=== PATIENT | female | born 1945 | race Caucasian/White ===

== ENCOUNTER 2017-07-11 17:29 | Emergency (ER) | payer MEDICARE ==
[~2017-07-11] VITALS: Ht 170.2 cm; Wt 91.7 kg
[2017-07-11] MEDS ORDERED: ACETAMINOPHEN 500 MG TABLET PO ONE (18:00)
[2017-07-11] MEDS ORDERED: SODIUM CHLORIDE 0.9% 1,000ML IVBOLUS ONE (18:00)
[2017-07-11] MEDS ORDERED: SODIUM CHLORIDE FLUSH 10ML SYR IVF ONE (18:00)
[2017-07-11] MEDS ORDERED: ACETAMINOPHEN 500 MG TABLET ONE (18:05)
[2017-07-11] MEDS ORDERED: ALBUTEROL/IPRATROPIUM 2.5MG/0.5MG, 3 ML ONE (18:07)
[2017-07-11] MEDS ORDERED: BUDE10.2 INH (18:21)
[2017-07-11] MEDS ORDERED: ALBU1.25 NEB (18:21)
[2017-07-11] MEDS ORDERED: ALBUTEROL/IPRATROPIUM 2.5MG/0.5MG, 3 ML NPPB ONE (18:30)
[2017-07-11 18:49] LABS: ALBUMIN 3.4 g/dL (3.4-5.0); ANION GAP 8 mmol/L (5-15); CALCIUM 8.6 mg/dL (8.5-10.1); CHLORIDE 107 mmol/L (98-107); CREATININE 0.75 mg/dL (0.55-1.02)
[2017-07-11 18:53] LABS: BASOPHILS # (AUTO) 0.04 x10^3/uL (0-0.1); BASOPHILS % (AUTO) 0 % (0-1); EOSINOPHILS # (AUTO) 0.05 x10^3/uL (0-0.4); EOSINOPHILS % (AUTO) 1 % (1-7); LYMPHOCYTES # (AUTO) 0.84 x10^3/uL (1-3.4); LYMPHOCYTES % (AUTO) 9 % (22-44); MD NO; MEAN CORPUSCULAR HEMOGLOBIN 27.9 pg (27.0-34.8); MEAN CORPUSCULAR HGB CONC 33.2 g/dL (32.4-35.8); MEAN CORPUSCULAR VOLUME 83.9 fL (80-100); MEAN PLATELET VOLUME 8.9 fL (7.4-10.4); MONOCYTES # (AUTO) 0.63 x10^3/uL (0.2-0.8); MONOCYTES % (AUTO) 6 % (2-9); NEUTROPHILS # (AUTO) 8.27 x10^3/uL (1.8-6.8); NEUTROPHILS % (AUTO) 84 % (42-75); PLATELET COUNT 187 x10^3/uL (130-400); RED BLOOD COUNT 5.14 x10^6/uL (3.82-5.3); RED CELL DISTRIBUTION WIDTH 16.7 % (9.6-15.2)
[2017-07-11 19:16] LABS: TROPONIN I < 0.015 ng/mL (0.000-0.045)
[2017-07-11 20:01] LABS: MICROSCOPIC INDICATED
[2017-07-11 20:17] LABS: CULTURE INDICATED? NO
[2017-07-11 20:32] VITALS: BP 109/72
[2017-07-11] MEDS ORDERED: methylPREDNISolone SOD SUCC 125 MG/2 ML IVPush SCH (21:00)
[2017-07-11] MEDS ORDERED: ALBUTEROL SULFATE 2.5 MG/3 ML NPPB ONE (21:00)
[2017-07-11] MEDS ORDERED: ALBUTEROL SULFATE 2.5 MG/3 ML ONE (21:08)
[2017-07-11] MEDS ORDERED: methylPREDNISolone SOD SUCC 125 MG/2 ML ONE (21:10)
== END 2017-07-11 21:27 ==
LOC: ED 20:44
DX: J96.01 Acute respiratory failure with hypoxia (principal); J44.1 Chronic obstructive pulmonary disease with (acute) exacerbation
CPT/HCPCS: 36415; 71046; 80048; 81001; 82040; 83605; 84484; 85025; 87040; 87081; 87880; 93005; 94640; 96361; 96374; 99285; J2930; J7030; J7613; J7620

== ENCOUNTER 2019-02-14 09:52 | Emergency (ER) | payer MEDICARE ==
[~2019-02-14] VITALS: Ht 172.7 cm; Wt 96.7 kg
[~2019-02-14 09:52] MED LIST: ALBU1.25 NEB; BUDE10.2 INH
[2019-02-14 09:55] VITALS: BP 152/86
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
== END 2019-02-14 12:06 | disposition home or self-care (01) ==
LOC: ED 11:55
DX: S82.125A Nondisplaced fracture of lateral condyle of left tibia, initial encounter for closed fracture (principal); J44.9 Chronic obstructive pulmonary disease, unspecified; F17.200 Nicotine dependence, unspecified, uncomplicated; W01.10XA Fall on same level from slipping, tripping and stumbling with subsequent striking against unspecified object, initial encounter; Y93.89 Activity, other specified; Y92.009 Unspecified place in unspecified non-institutional (private) residence as the place of occurrence of the external cause; Y99.8 Other external cause status
CPT/HCPCS: 99284

== ENCOUNTER 2020-07-08 05:42 | Emergency (ER) | payer MEDICARE ==
[~2020-07-08] VITALS: Ht 175.3 cm; Wt 109.4 kg
[~2020-07-08 05:42] MED LIST changes: +CALC-709 PO; +METH4TAB2 PO; +OXYC5TAB98 PO
[2020-07-08 05:44] VITALS: BP 175/90
[2020-07-08] MEDS ORDERED: DIAZEPAM 5 MG TABLET ONE (06:25)
[2020-07-08] MEDS ORDERED: OXYcodone/APAP 5/325MG TABLET ONE (06:25)
[2020-07-08] MEDS ORDERED: OXYcodone/APAP 5/325MG TABLET PO ONE (06:30)
[2020-07-08] MEDS ORDERED: DIAZEPAM 5 MG TABLET PO ONE (06:30)
--- NOTE | 2020-07-08 06:31 | NUR ---
PT HAS LEFT LOWER BACK AND L SIDE PAIN. PT A/O X4 WITH UNLABORED BREATHS. PT ON MONITOR. PT MEDICATED PER MAY.
--- NOTE | 2020-07-08 07:10 | NUR ---
report received from francoise lawrence.
--- NOTE | 2020-07-08 07:10 | NUR ---
REPORT TO DOMINGA PADILLA
--- NOTE | 2020-07-08 07:45 | NUR ---
Patient given discharge instructions and they have confirmed that they understand the instructions.
== END 2020-07-08 07:46 | disposition home or self-care (01) ==
LOC: ED 06:18
DX: S22.069A Unspecified fracture of T7-T8 vertebra, initial encounter for closed fracture (principal); S22.089A Unspecified fracture of T11-T12 vertebra, initial encounter for closed fracture; J44.9 Chronic obstructive pulmonary disease, unspecified; Z87.891 Personal history of nicotine dependence; X58.XXXA Exposure to other specified factors, initial encounter; Y93.89 Activity, other specified; Y92.89 Other specified places as the place of occurrence of the external cause; Y99.8 Other external cause status
CPT/HCPCS: 72072; 99283

== ENCOUNTER 2020-07-29 09:45 | Outpatient (CLI) | payer MEDICARE | END 2020-07-29 23:59 | disposition home or self-care (01) | LOC: CFH 09:45 | PROVIDERS: ATTEND Registered Nurse | DX: R29.2 Abnormal reflex (principal) | CPT/HCPCS: 72040; 72141 ==